=== PATIENT | female | born 1970 | race African-American/Black ===

== ENCOUNTER 2022-01-24 11:54 | Inpatient (IN) | payer OTHER, SELFPAY ==
[~2022-01-24 11:54] MED LIST: Iopamidol 300 61% 100 ML VIAL FS ONE
[2022-01-24 12:47] LABS: Bilirubin Neg (Negative); Blood, Urine 250 (Negative); Clarity Cloudy (Clear); Glucose, Urine (Dipstick) Normal (Negative); Ketone, Urine Negative (Negative); Leukocyte 500 (Negative); Nitrite Negative (Negative); Protein, Urine (Dipstick) 100 mg/dl (Neg-Trace); Specific Gravity, Urine 1.015 (1.005-1.030); Urobilinogen Normal mg/dL (Less than 2)
[2022-01-24 13:17] LABS: WBC/HPF Greater Than 50 HPF (0-3)
[2022-01-24 13:18] LABS: Bacteria/HPF 1+ HPF (None Seen)
[2022-01-24] MEDS ORDERED: Haloperidol Lactate 5 MG/ML VIAL ONE (14:51)
[2022-01-24] MEDS ORDERED: Ketorolac Tromethamine 30 MG/ML VIAL ONE (14:52)
[2022-01-24] MEDS ORDERED: Ondansetron PF 4 MG/2 ML Vial ONE (14:52)
[2022-01-24] MEDS ORDERED: diphenhydrAMINE 50 MG/ML VIAL ONE (14:52)
[2022-01-24 14:54] LABS: #Monocytes 0.8 10x3/uL (0.0-1.1); #Neutrophils 5.3 10x3/uL (1.5-8.4); %Basophils 0.1 % (0.0-2.0); %Eosinophils 0.1 % (0.0-6.0); %Lymphocytes 18.1 % (18.0-47.0); %Neutrophils 71.6 % (40.0-75.0); Mean Corpuscular HGB CONC 33.3 g/dL (32.0-36.0); Mean Corpuscular Hemoglobin 25.5 pg (27.0-33.0); Mean Corpuscular Volume 76.6 fl (81.6-98.3); Mean Platelet Volume 10.7 fl (7.4-10.4); Platelet Count 217 10x3/uL (150-450); RBC Distribution Width 15.7 % (11.5-14.5); White Blood Cell (WBC) Count 7.5 10x3/uL (3.5-10.5)
[2022-01-24 15:15] LABS: ALT (SGPT) 23 U/L (8-55); AST (SGOT) 22 U/L (5-34); Albumin 4.2 g/dL (3.5-5.0); Alkaline Phosphatase 80 U/L (40-110); Anion Gap 16 mmol/L (10-20); BUN (Urea Nitrogen) 18 mg/dL (9.8-20.1); Calc. Creatinine Clearance 0 mL/min (70-130); Calcium 9.2 mg/dL (7.8-10.44); Carbon Dioxide 26 mmol/L (22-29); Chloride 100 mmol/L (98-107); Estimated GFR 72; Globulin 3.4 g/dL (2.4-3.5); Glucose 92 mg/dL (70-105); Lipase 14 U/L (8-78); Magnesium 1.6 mg/dL (1.6-2.6); Protein, Total 7.6 g/dL (6.0-8.3); Sodium 139 mmol/L (136-145)
[2022-01-24 15:31] LABS: CKMB 1.3 ng/mL (0-6.6)
[2022-01-24] MEDS ORDERED: cefTRIAXone\\ROCEPHIN 2 GM VIAL ONE (15:48)
[2022-01-24] MEDS ORDERED: Senokot S 8.6-50 MG TAB PO PRN (17:14)
[2022-01-24] MEDS ORDERED: Ondansetron PF 4 MG/2 ML Vial IVP PRN (17:14)
[2022-01-24] MEDS ORDERED: Ondansetron ODT 4 MG TAB PO PRN (17:14)
[2022-01-24] MEDS ORDERED: Acetaminophen 500 MG TAB ONE (17:26)
[2022-01-24 18:12] LABS: Troponin I 0.041 ng/mL (< 0.028)
[2022-01-24] MEDS ORDERED: Potassium Chloride 20 MEQ TAB PO SCH (20:00)
[2022-01-24] MEDS ORDERED: Magnesium 2 GM/50 ML(in water) 2 GM in Premix Bag 1 BAG IVPB SCH (20:00)
[2022-01-24 20:08] VITALS: BMI 48.5
[2022-01-24] MEDS: Sodium Chloride 0.9% 1,000 ML IV SCH (20:38)
[2022-01-24] MEDS: Enoxaparin Sodium 40 MG/0.4 ML SYRINGE SC SCH (20:39)
[2022-01-24] MEDS: Famotidine 20 MG TAB PO SCH (20:52)
[2022-01-24 22:20] LABS: SARS-CoV-2 NAA Rapid Test Not Detected (NotDetected)
[2022-01-25] MEDS: Acetaminophen 325 MG TAB PO PRN ×2 (01:09→21:50)
[2022-01-25 06:40] LABS: Anion Gap 12 mmol/L (10-20); BUN (Urea Nitrogen) 11 mg/dL (9.8-20.1); Calc. Creatinine Clearance 203 mL/min (70-130); Calcium 8.5 mg/dL (7.8-10.44); Carbon Dioxide 27 mmol/L (22-29); Chloride 105 mmol/L (98-107); Estimated GFR 88; Glucose 97 mg/dL (70-105); Magnesium 1.8 mg/dL (1.6-2.6); Potassium 2.9 mmol/L (3.5-5.1); Sodium 141 mmol/L (136-145)
[2022-01-25 06:43] LABS: Mean Corpuscular HGB CONC 32.6 g/dL (32.0-36.0); Mean Corpuscular Hemoglobin 25.1 pg (27.0-33.0); Mean Corpuscular Volume 76.9 fl (81.6-98.3); Mean Platelet Volume 10.8 fl (7.4-10.4); Platelet Count 180 10x3/uL (150-450); RBC Distribution Width 15.9 % (11.5-14.5); Red Blood Cell (RBC) Count 4.38 10x6/uL (3.90-5.03); White Blood Cell (WBC) Count 5.9 10x3/uL (3.5-10.5)
[2022-01-25 07:24] LABS: MDiff Complete? YES
[2022-01-25 07:27] LABS: Eosinophils 1 % (0-10); Lymphocytes 24 % (21-51); Monocytes 10 % (0-10); Neutrophil 64 % (42-75); Platelet Morphology Comment Appears Adequate; RBC Morphology Normal; Reactive Lymphocytes 1 % (0-10)
[2022-01-25] MEDS ORDERED: FLU VACC QS2022-23(6MOS UP)/PF 60 MCG/0.5 ML SYRINGE IM ONE (09:00)
[2022-01-25] MEDS: Famotidine 20 MG TAB PO SCH ×2 (09:07→21:42)
[2022-01-25] MEDS: Potassium Chloride 20 MEQ TAB PO SCH ×2 (09:24→21:42)
[2022-01-25] MEDS: cefTRIAXone\\ROCEPHIN 2 GM in Sodium Chloride 0.9% 100 ML IVPB SCH (15:05)
[2022-01-25] MEDS: Sodium Chloride 0.9% 1,000 ML IV SCH (16:16)
[2022-01-25] MEDS: traMADol HCl 50 MG TAB PO PRN (17:14)
[2022-01-25] MEDS: Amlodipine 10 MG TAB PO SCH (21:42)
[2022-01-25] MEDS: Enoxaparin Sodium 40 MG/0.4 ML SYRINGE SC SCH (21:42)
[2022-01-26 04:24] LABS: Anion Gap 10 mmol/L (10-20); BUN (Urea Nitrogen) 10 mg/dL (9.8-20.1); Calc. Creatinine Clearance 232 mL/min (70-130); Calcium 8.7 mg/dL (7.8-10.44); Carbon Dioxide 29 mmol/L (22-29); Chloride 103 mmol/L (98-107); Estimated GFR 103; Glucose 99 mg/dL (70-105); Magnesium 1.6 mg/dL (1.6-2.6); Potassium 3.3 mmol/L (3.5-5.1); Sodium 139 mmol/L (136-145)
[2022-01-26 04:51] LABS: #Eosinphils 0.1 10x3/uL (0.0-0.5); #Monocytes 0.8 10x3/uL (0.0-1.1); %Basophils 0.5 % (0.0-2.0); %Eosinophils 2.2 % (0.0-6.0); %Lymphocytes 28.1 % (18.0-47.0); %Monocytes 19.1 % (0.0-10.0); %Neutrophils 49.9 % (40.0-75.0); Hemoglobin 11.5 g/dL (12.0-15.5); Mean Corpuscular HGB CONC 32.6 g/dL (32.0-36.0); Mean Corpuscular Hemoglobin 25.2 pg (27.0-33.0); Mean Corpuscular Volume 77.4 fl (81.6-98.3); Mean Platelet Volume 10.3 fl (7.4-10.4); Platelet Count 174 10x3/uL (150-450); RBC Distribution Width 15.8 % (11.5-14.5); Red Blood Cell (RBC) Count 4.56 10x6/uL (3.90-5.03); White Blood Cell (WBC) Count 4.1 10x3/uL (3.5-10.5)
[2022-01-26] MEDS: traMADol HCl 50 MG TAB PO PRN ×2 (05:23→20:41)
[2022-01-26 05:57] LABS: Band 1 % (5-11); Eosinophils 4 % (0-10); Lymphocytes 23 % (21-51); Monocytes 12 % (0-10); Neutrophil 54 % (42-75); Reactive Lymphocytes 6 % (0-10)
[2022-01-26 05:59] LABS: Microcytosis SLIGHT = 6-15 cells (100X) (0-5/hpf)
[2022-01-26 06:00] LABS: Hypochromia SLIGHT = 6-15 cells (100X) (0-5/hpf)
[2022-01-26] MEDS ORDERED: Potassium Chloride 20 MEQ TAB PO SCH (08:30)
[2022-01-26] MEDS ORDERED: Loperamide HCl 2 MG CAP PO PRN (08:31)
[2022-01-26] MEDS: Famotidine 20 MG TAB PO SCH ×2 (09:35→20:43)
[2022-01-26] MEDS: cefTRIAXone\\ROCEPHIN 2 GM in Sodium Chloride 0.9% 100 ML IVPB SCH (17:15)
[2022-01-26] MEDS: Acetaminophen 325 MG TAB PO PRN (17:51)
[2022-01-26] MEDS ORDERED: hydrALAZINE 20 MG/ML VIAL SLOW IVP PRN (18:26)
[2022-01-26] MEDS: Amlodipine 10 MG TAB PO SCH (20:42)
[2022-01-26] MEDS: Enoxaparin Sodium 40 MG/0.4 ML SYRINGE SC SCH (20:43)
[2022-01-27 04:30] LABS: #Eosinphils 0.1 10x3/uL (0.0-0.5); #Monocytes 0.7 10x3/uL (0.0-1.1); #Neutrophils 1.3 10x3/uL (1.5-8.4); %Basophils 0.6 % (0.0-2.0); %Eosinophils 3.6 % (0.0-6.0); %Lymphocytes 41.4 % (18.0-47.0); %Monocytes 19.3 % (0.0-10.0); %Neutrophils 34.8 % (40.0-75.0); Hemoglobin 11.9 g/dL (12.0-15.5); Mean Corpuscular Hemoglobin 25.1 pg (27.0-33.0); Platelet Count 198 10x3/uL (150-450); RBC Distribution Width 15.4 % (11.5-14.5); Red Blood Cell (RBC) Count 4.75 10x6/uL (3.90-5.03); White Blood Cell (WBC) Count 3.6 10x3/uL (3.5-10.5)
[2022-01-27 04:41] LABS: Anion Gap 12 mmol/L (10-20); BUN (Urea Nitrogen) 9 mg/dL (9.8-20.1); Calc. Creatinine Clearance 250 mL/min (70-130); Calcium 9.1 mg/dL (7.8-10.44); Carbon Dioxide 28 mmol/L (22-29); Chloride 102 mmol/L (98-107); Estimated GFR 105; Glucose 115 mg/dL (70-105); Magnesium 1.5 mg/dL (1.6-2.6); Potassium 3.3 mmol/L (3.5-5.1); Sodium 139 mmol/L (136-145)
[2022-01-27 06:32] LABS: Band 1 % (5-11); Eosinophils 4 % (0-10); Lymphocytes 32 % (21-51); Monocytes 26 % (0-10)
[2022-01-27 06:33] LABS: Neutrophil 37 % (42-75)
[2022-01-27 06:34] LABS: Ovalocytes SLIGHT = 2-5 cells (100X) (0-1/hpf)
[2022-01-27 06:35] LABS: Giant Platelets SLIGHT
[2022-01-27] MEDS ORDERED: Magnesium 2 GM/50 ML(in water) 2 GM in Premix Bag 1 BAG IVPB SCH (08:30)
[2022-01-27] MEDS ORDERED: Potassium Chloride 20 MEQ TAB PO SCH (09:00)
[2022-01-27] MEDS: Famotidine 20 MG TAB PO SCH (10:07)
[2022-01-27] MEDS ORDERED: cefTRIAXone\\ROCEPHIN 2 GM in Sodium Chloride 0.9% 100 ML IVPB SCH (12:00)
[2022-01-27 12:41] VITALS: BP 140/99; TEMP 97.9
== END 2022-01-27 14:07 | disposition home or self-care (01) | DRG 871 ==
LOC: CSHERS 11:54 → CSHTELE 18:42 → OBSVTOIN 01-25 09:43
PROVIDERS: ADMIT Family Medicine; ATTEND Internal Medicine
DX: A41.9 Sepsis, unspecified organism (principal); I21.A1 Myocardial infarction type 2; N30.00 Acute cystitis without hematuria; Z20.822 Contact with and (suspected) exposure to COVID-19; B96.20 Unspecified Escherichia coli [E. coli] as the cause of diseases classified elsewhere; E87.6 Hypokalemia; I10 Essential (primary) hypertension; E87.5 Hyperkalemia; J45.909 Unspecified asthma, uncomplicated; R19.7 Diarrhea, unspecified; Z88.5 Allergy status to narcotic agent; Z79.899 Other long term (current) drug therapy; Z98.51 Tubal ligation status
CPT/HCPCS: 36415; 74177; 80048; 80053; 81003; 81015; 82553; 83605; 83690; 83735; 84484; 85025; 87040; 87077; 87086; 87149; 87186; 93005; 94760; 96365; 96372; 96375; G0378; J0360; J0696; J1200; J1630; J1650; J1885; J2405; J3475; J3490; J7050; Q9967

== ENCOUNTER 2022-02-27 23:48 | Inpatient (IN) | payer OTHER, SELFPAY ==
[2022-02-28 00:57] LABS: #Eosinphils 0.1 10x3/uL (0.0-0.5); #Monocytes 0.6 10x3/uL (0.0-1.1); #Neutrophils 2.9 10x3/uL (1.5-8.4); %Basophils 0.6 % (0.0-2.0); %Eosinophils 1.8 % (0.0-6.0); %Monocytes 11.8 % (0.0-10.0); %Neutrophils 58.6 % (40.0-75.0); Mean Corpuscular HGB CONC 32.6 g/dL (32.0-36.0); Mean Corpuscular Hemoglobin 25.3 pg (27.0-33.0); Mean Corpuscular Volume 77.6 fl (81.6-98.3); Mean Platelet Volume 10.1 fl (7.4-10.4); Platelet Count 203 10x3/uL (150-450); RBC Distribution Width 16.9 % (11.5-14.5); Red Blood Cell (RBC) Count 4.74 10x6/uL (3.90-5.03); White Blood Cell (WBC) Count 4.9 10x3/uL (3.5-10.5)
[2022-02-28 01:11] LABS: ALT (SGPT) 21 U/L (8-55); AST (SGOT) 18 U/L (5-34); Albumin 3.8 g/dL (3.5-5.0); Alkaline Phosphatase 69 U/L (40-110); Anion Gap 13 mmol/L (10-20); BUN (Urea Nitrogen) 15 mg/dL (9.8-20.1); Bilirubin, Total 0.4 mg/dL (0.2-1.2); Calc. Creatinine Clearance 0 mL/min (70-130); Carbon Dioxide 28 mmol/L (22-29); Chloride 103 mmol/L (98-107); Estimated GFR 70; Globulin 3.1 g/dL (2.4-3.5); Glucose 116 mg/dL (70-105); Protein, Total 6.9 g/dL (6.0-8.3); Sodium 141 mmol/L (136-145)
[2022-02-28 01:31] LABS: CKMB 1.9 ng/mL (0-6.6)
[2022-02-28] MEDS ORDERED: Aspirin Chewable 81 MG TAB ONE ×2 (02:27→09:38)
[2022-02-28] MEDS ORDERED: Nitroglycerin 2% Ointment 1 INCH/1 GM Packet ONE (02:27)
[2022-02-28] MEDS ORDERED: Potassium Chloride 20 MEQ TAB ONE ×2 (02:27→06:31)
[2022-02-28 04:30] LABS: SARS-CoV-2 NAA Rapid Test Not Detected (NotDetected)
[2022-02-28 04:55] LABS: Troponin I 0.055 ng/mL (< 0.028)
[2022-02-28] MEDS ORDERED: Potassium Chloride 20 MEQ TAB PO SCH ×2 (06:30→18:00)
[2022-02-28 07:12] LABS: Troponin I 0.047 ng/mL (< 0.028)
[2022-02-28 07:28] LABS: Magnesium 1.6 mg/dL (1.6-2.6)
[2022-02-28 07:54] LABS: Uric Acid 6.1 mg/dL (2.6-6.0)
[2022-02-28] MEDS ORDERED: Carvedilol 3.125 MG TAB PO SCH (09:00)
[2022-02-28] MEDS ORDERED: Nitroglycerin 2% Ointment 1 INCH/1 GM Packet TOP SCH (09:00)
[2022-02-28] MEDS ORDERED: Carvedilol 3.125 MG TAB ONE (09:36)
[2022-02-28] MEDS ORDERED: Enoxaparin Sodium 40 MG/0.4 ML SYRINGE ONE (09:38)
[2022-02-28] MEDS ORDERED: hydrALAZINE 25 MG TAB ONE ×2 (09:38→12:08)
[2022-02-28] MEDS: Enoxaparin Sodium 40 MG/0.4 ML SYRINGE SC SCH (09:47)
[2022-02-28] MEDS: Aspirin Chewable 81 MG TAB PO SCH (09:47)
[2022-02-28] MEDS: hydrALAZINE 25 MG TAB PO SCH ×3 (09:47→23:42)
[2022-02-28] MEDS: FLUoxetine HCl 10 MG CAP PO SCH (09:47)
[2022-02-28 11:15] LABS: Anion Gap 10 mmol/L (10-20); BUN (Urea Nitrogen) 14 mg/dL (9.8-20.1); Calc. Creatinine Clearance 0 mL/min (70-130); Calcium 8.8 mg/dL (7.8-10.44); Carbon Dioxide 27 mmol/L (22-29); Chloride 104 mmol/L (98-107); Estimated GFR 97; Glucose 139 mg/dL (70-105); Potassium 3.4 mmol/L (3.5-5.1); Sodium 138 mmol/L (136-145)
[2022-02-28] MEDS: Enalaprilat Dihydrate 1.25 MG/ML VIAL SLOW IVP SCH ×2 (11:59→17:12)
[2022-02-28 15:43] VITALS: BMI 44.1
[2022-02-28] MEDS ORDERED: Furosemide 20 MG/2 ML VIAL SLOW IVP SCH (18:00)
[2022-02-28] MEDS ORDERED: Magnesium 2 GM/50 ML(in water) 2 GM in Premix Bag 1 BAG IVPB SCH (20:00)
[2022-02-28] MEDS ORDERED: Losartan 25 MG TAB PO SCH (21:00)
[2022-02-28] MEDS: Valsartan 80 MG TAB PO SCH (23:42)
[2022-03-01 07:13] LABS: #Eosinphils 0.1 10x3/uL (0.0-0.5); #Monocytes 0.5 10x3/uL (0.0-1.1); #Neutrophils 2.9 10x3/uL (1.5-8.4); %Basophils 0.4 % (0.0-2.0); %Eosinophils 1.5 % (0.0-6.0); %Lymphocytes 27.2 % (18.0-47.0); %Monocytes 10.7 % (0.0-10.0); Hemoglobin 11.4 g/dL (12.0-15.5); Mean Corpuscular HGB CONC 32.7 g/dL (32.0-36.0); Mean Corpuscular Hemoglobin 25.3 pg (27.0-33.0); Mean Corpuscular Volume 77.6 fl (81.6-98.3); Mean Platelet Volume 10.1 fl (7.4-10.4); Platelet Count 200 10x3/uL (150-450); White Blood Cell (WBC) Count 4.8 10x3/uL (3.5-10.5)
[2022-03-01 07:33] LABS: Anion Gap 13 mmol/L (10-20); BUN (Urea Nitrogen) 11 mg/dL (9.8-20.1); Calc. Creatinine Clearance 208 mL/min (70-130); Calcium 8.6 mg/dL (7.8-10.44); Carbon Dioxide 25 mmol/L (22-29); Chloride 106 mmol/L (98-107); Estimated GFR 102; Glucose 105 mg/dL (70-105); Potassium 3.5 mmol/L (3.5-5.1); Sodium 140 mmol/L (136-145)
[2022-03-01] MEDS ORDERED: Carvedilol 6.25 MG TAB PO SCH (08:00)
[2022-03-01] MEDS: Aspirin Chewable 81 MG TAB PO SCH (08:47)
[2022-03-01] MEDS: FLUoxetine HCl 10 MG CAP PO SCH (08:47)
[2022-03-01] MEDS: hydrALAZINE 25 MG TAB PO SCH ×3 (08:48→22:23)
[2022-03-01] MEDS: Valsartan 80 MG TAB PO SCH ×2 (08:48→22:23)
[2022-03-01] MEDS: Enoxaparin Sodium 40 MG/0.4 ML SYRINGE SC SCH (08:48)
[2022-03-01] MEDS: Furosemide 40 MG/4 ML VIAL SLOW IVP SCH (08:53)
[2022-03-01] MEDS: Carvedilol 12.5 MG TAB PO SCH (17:07)
[2022-03-02 05:09] LABS: Anion Gap 11 mmol/L (10-20); BUN (Urea Nitrogen) 14 mg/dL (9.8-20.1); Calc. Creatinine Clearance 211 mL/min (70-130); Calcium 8.7 mg/dL (7.8-10.44); Carbon Dioxide 27 mmol/L (22-29); Chloride 103 mmol/L (98-107); Estimated GFR 103; Glucose 100 mg/dL (70-105); Potassium 3.1 mmol/L (3.5-5.1); Sodium 138 mmol/L (136-145)
[2022-03-02] MEDS ORDERED: GUAIFENESIN SF SOLN 200 MG/10 ML UDCUP PO PRN (05:58)
[2022-03-02] MEDS: Enoxaparin Sodium 40 MG/0.4 ML SYRINGE SC SCH (08:51)
[2022-03-02] MEDS: Aspirin Chewable 81 MG TAB PO SCH (08:51)
[2022-03-02] MEDS: FLUoxetine HCl 10 MG CAP PO SCH (08:52)
[2022-03-02] MEDS: Potassium Chloride 20 MEQ TAB PO SCH ×2 (08:52→13:10)
[2022-03-02] MEDS: Carvedilol 12.5 MG TAB PO SCH (08:52)
[2022-03-02] MEDS: Furosemide 40 MG/4 ML VIAL SLOW IVP SCH (08:52)
[2022-03-02] MEDS: hydrALAZINE 25 MG TAB PO SCH (08:52)
[2022-03-02] MEDS: Valsartan 80 MG TAB PO SCH (08:54)
[2022-03-02 12:26] VITALS: BP 146/83; TEMP 97.7
== END 2022-03-02 13:45 | disposition home or self-care (01) | DRG 291 ==
LOC: CSHERS 23:48 → CSHERHOLD 02-28 03:37 → CSHTELE 02-28 13:41
PROVIDERS: ADMIT Family Medicine; ATTEND Family Medicine
DX: I11.0 Hypertensive heart disease with heart failure (principal); I50.43 Acute on chronic combined systolic (congestive) and diastolic (congestive) heart failure; Z68.43 Body mass index [BMI] 50.0-59.9, adult; J45.20 Mild intermittent asthma, uncomplicated; E87.6 Hypokalemia; E66.01 Morbid (severe) obesity due to excess calories; R77.8 Other specified abnormalities of plasma proteins; Z20.822 Contact with and (suspected) exposure to COVID-19; F41.0 Panic disorder [episodic paroxysmal anxiety]; G47.33 Obstructive sleep apnea (adult) (pediatric); Z98.51 Tubal ligation status; Z79.899 Other long term (current) drug therapy; Z82.49 Family history of ischemic heart disease and other diseases of the circulatory system; Z83.3 Family history of diabetes mellitus; Z82.3 Family history of stroke; Z88.5 Allergy status to narcotic agent; Z79.82 Long term (current) use of aspirin
CPT/HCPCS: 36415; 71045; 80048; 80053; 82553; 83605; 83735; 83880; 84443; 84484; 84550; 85025; 87040; 93005; 93306; 94640; 94760; 97139; J1650; J1940; J3475; J7620; U0002

== ENCOUNTER 2022-04-20 04:23 | Inpatient (IN) | payer OTHER ==
[2022-04-20] MEDS ORDERED: Aspirin Chewable 81 MG TAB ONE (05:27)
[2022-04-20] MEDS ORDERED: Furosemide 40 MG/4 ML VIAL ONE (05:27)
[2022-04-20] MEDS ORDERED: Nitroglycerin 2% Ointment 1 INCH/1 GM Packet ONE (05:27)
[2022-04-20 06:03] LABS: Hemoglobin 11.1 g/dL (12.0-15.5); MDiff Complete? YES; Mean Corpuscular HGB CONC 32.5 g/dL (32.0-36.0); Mean Corpuscular Hemoglobin 25.3 pg (27.0-33.0); Mean Corpuscular Volume 77.9 fl (81.6-98.3); Mean Platelet Volume 10.4 fl (7.4-10.4); Platelet Count 186 10x3/uL (150-450); RBC Distribution Width 16.2 % (11.5-14.5); Red Blood Cell (RBC) Count 4.39 10x6/uL (3.90-5.03); White Blood Cell (WBC) Count 3.7 10x3/uL (3.5-10.5)
[2022-04-20 06:19] LABS: ALT (SGPT) 43 U/L (8-55); AST (SGOT) 35 U/L (5-34); Albumin 3.4 g/dL (3.5-5.0); Alkaline Phosphatase 62 U/L (40-110); Anion Gap 12 mmol/L (10-20); BUN (Urea Nitrogen) 18 mg/dL (9.8-20.1); Bilirubin, Total 0.4 mg/dL (0.2-1.2); CK (CPK) 127 U/L (29-168); Calc. Creatinine Clearance 0 mL/min (70-130); Calcium 8.8 mg/dL (7.8-10.44); Carbon Dioxide 25 mmol/L (22-29); Chloride 107 mmol/L (98-107); Estimated GFR 81; Globulin 2.5 g/dL (2.4-3.5); Glucose 114 mg/dL (70-105); Lipase 24 U/L (8-78); Potassium 3.7 mmol/L (3.5-5.1); Protein, Total 5.9 g/dL (6.0-8.3); Sodium 140 mmol/L (136-145)
[2022-04-20 06:27] LABS: Anisocytosis SLIGHT = 6-15 cells (100X) (0-5/hpf); Hypochromia SLIGHT = 6-15 cells (100X) (0-5/hpf); Lymphocytes 28 % (21-51); Microcytosis SLIGHT = 6-15 cells (100X) (0-5/hpf); Monocytes 12 % (0-10); Neutrophil 60 % (42-75)
[2022-04-20 06:28] LABS: Platelet Morphology Comment Appears Adequate
[2022-04-20 06:57] LABS: Bilirubin Neg (Negative); Blood, Urine Negative (Negative); Clarity Clear (Clear); Glucose, Urine (Dipstick) Normal (Negative); Ketone, Urine Negative (Negative); Leukocyte 500 (Negative); Nitrite Negative (Negative); Protein, Urine (Dipstick) Negative (Neg-Trace); Specific Gravity, Urine 1.005 (1.005-1.030); Urobilinogen Normal mg/dL (Less than 2)
[2022-04-20 07:00] LABS: Bacteria/HPF Rare-Few HPF (None Seen); RBC/HPF 0-3 HPF (0-3); Squamous Epithelial 0-3 HPF (0-3)
[2022-04-20] MEDS ORDERED: Ondansetron PF 4 MG/2 ML Vial IVP PRN (10:29)
[2022-04-20] MEDS ORDERED: Acetaminophen 325 MG TAB PO PRN (10:29)
[2022-04-20] MEDS ORDERED: Acetaminophen 650 MG Suppository PR PRN (10:29)
[2022-04-20] MEDS ORDERED: Ondansetron ODT 4 MG TAB PO PRN (10:29)
[2022-04-20] MEDS ORDERED: Ventolin HFA Inhaler 60 PUFF INHALER INH PRN (10:52)
[2022-04-20] MEDS ORDERED: hydrALAZINE 25 MG TAB PO SCH (15:00)
[2022-04-20] MEDS: Furosemide 40 MG/4 ML VIAL SLOW IVP SCH (15:00)
[2022-04-20] MEDS: Carvedilol 12.5 MG TAB PO SCH (17:53)
[2022-04-21 03:55] LABS: Hemoglobin 10.7 g/dL (12.0-15.5); Mean Corpuscular HGB CONC 32.9 g/dL (32.0-36.0); Mean Corpuscular Hemoglobin 25.4 pg (27.0-33.0); Mean Corpuscular Volume 77.2 fl (81.6-98.3); Mean Platelet Volume 10.3 fl (7.4-10.4); Platelet Count 168 10x3/uL (150-450); RBC Distribution Width 15.9 % (11.5-14.5); Red Blood Cell (RBC) Count 4.21 10x6/uL (3.90-5.03); White Blood Cell (WBC) Count 3.8 10x3/uL (3.5-10.5)
[2022-04-21 03:56] LABS: MDiff Complete? YES
[2022-04-21 04:09] LABS: Anion Gap 11 mmol/L (10-20); BUN (Urea Nitrogen) 14 mg/dL (9.8-20.1); Calc. Creatinine Clearance 198 mL/min (70-130); Calcium 8.4 mg/dL (7.8-10.44); Carbon Dioxide 28 mmol/L (22-29); Chloride 105 mmol/L (98-107); Estimated GFR 92; Glucose 98 mg/dL (70-105); Potassium 3.2 mmol/L (3.5-5.1); Sodium 141 mmol/L (136-145)
[2022-04-21 04:46] LABS: Lymphocytes 27 % (21-51); Monocytes 6 % (0-10); Neutrophil 63 % (42-75); Reactive Lymphocytes 4 % (0-10)
[2022-04-21 04:47] LABS: Anisocytosis SLIGHT = 6-15 cells (100X) (0-5/hpf); Hypochromia SLIGHT = 6-15 cells (100X) (0-5/hpf); Microcytosis SLIGHT = 6-15 cells (100X) (0-5/hpf); Platelet Morphology Comment Appears Adequate
[2022-04-21] MEDS: Furosemide 40 MG/4 ML VIAL SLOW IVP SCH ×2 (05:47→13:30)
[2022-04-21] MEDS: Carvedilol 12.5 MG TAB PO SCH ×2 (09:20→17:20)
[2022-04-21] MEDS: Valsartan 80 MG TAB PO SCH (09:21)
[2022-04-21] MEDS ORDERED: Potassium Chloride 20 MEQ TAB PO SCH (12:00)
[2022-04-22 04:35] LABS: Mean Corpuscular Hemoglobin 25.5 pg (27.0-33.0); Mean Corpuscular Volume 77.1 fl (81.6-98.3); Mean Platelet Volume 10.2 fl (7.4-10.4); Platelet Count 179 10x3/uL (150-450); RBC Distribution Width 15.9 % (11.5-14.5); Red Blood Cell (RBC) Count 4.32 10x6/uL (3.90-5.03); White Blood Cell (WBC) Count 3.6 10x3/uL (3.5-10.5)
[2022-04-22 04:45] LABS: MDiff Complete? YES
[2022-04-22 04:49] LABS: Anion Gap 11 mmol/L (10-20); BUN (Urea Nitrogen) 13 mg/dL (9.8-20.1); Calc. Creatinine Clearance 194 mL/min (70-130); Calcium 8.4 mg/dL (7.8-10.44); Carbon Dioxide 29 mmol/L (22-29); Chloride 104 mmol/L (98-107); Estimated GFR 91; Glucose 91 mg/dL (70-105); Potassium 3.1 mmol/L (3.5-5.1); Sodium 141 mmol/L (136-145)
[2022-04-22 05:49] LABS: Eosinophils 5 % (0-10); Lymphocytes 34 % (21-51); Monocytes 20 % (0-10); Neutrophil 37 % (42-75); Reactive Lymphocytes 4 % (0-10)
[2022-04-22 05:50] LABS: Anisocytosis SLIGHT = 6-15 cells (100X) (0-5/hpf)
[2022-04-22 05:51] LABS: Hypochromia SLIGHT = 6-15 cells (100X) (0-5/hpf); Macrocytosis SLIGHT = 6-15 cells (100X) (0-5/hpf); Microcytosis SLIGHT = 6-15 cells (100X) (0-5/hpf)
[2022-04-22 05:52] LABS: Platelet Morphology Comment Appears Adequate
[2022-04-22] MEDS: Furosemide 40 MG/4 ML VIAL SLOW IVP SCH ×2 (06:04→15:17)
[2022-04-22] MEDS: FLUoxetine HCl 10 MG CAP PO SCH (09:27)
[2022-04-22] MEDS: Carvedilol 12.5 MG TAB PO SCH ×2 (09:27→17:57)
[2022-04-22] MEDS: Aspirin Chewable 81 MG TAB PO SCH (09:27)
[2022-04-22] MEDS: Potassium Chloride 20 MEQ TAB PO SCH (09:27)
[2022-04-22] MEDS: Valsartan 80 MG TAB PO SCH ×2 (09:27→21:15)
[2022-04-22] MEDS ORDERED: Iopamidol 300 61% 100 ML VIAL FS ONE (11:11)
[2022-04-23 05:30] LABS: Anion Gap 11 mmol/L (10-20); BUN (Urea Nitrogen) 10 mg/dL (9.8-20.1); Calc. Creatinine Clearance 196 mL/min (70-130); Calcium 8.8 mg/dL (7.8-10.44); Carbon Dioxide 29 mmol/L (22-29); Chloride 102 mmol/L (98-107); Estimated GFR 95; Glucose 95 mg/dL (70-105); Potassium 3.1 mmol/L (3.5-5.1); Sodium 139 mmol/L (136-145)
[2022-04-23 05:34] LABS: Hemoglobin 11.8 g/dL (12.0-15.5); Mean Corpuscular HGB CONC 32.2 g/dL (32.0-36.0); Mean Corpuscular Hemoglobin 24.7 pg (27.0-33.0); Mean Corpuscular Volume 76.7 fl (81.6-98.3); Platelet Count 185 10x3/uL (150-450); RBC Distribution Width 15.9 % (11.5-14.5); Red Blood Cell (RBC) Count 4.77 10x6/uL (3.90-5.03); White Blood Cell (WBC) Count 3.6 10x3/uL (3.5-10.5)
[2022-04-23 05:35] LABS: MDiff Complete? YES
[2022-04-23] MEDS: Furosemide 40 MG/4 ML VIAL SLOW IVP SCH ×2 (06:02→14:22)
[2022-04-23 06:05] LABS: Eosinophils 2 % (0-10); Lymphocytes 25 % (21-51); Monocytes 24 % (0-10); Neutrophil 48 % (42-75); Reactive Lymphocytes 1 % (0-10)
[2022-04-23 06:14] LABS: Microcytosis SLIGHT = 6-15 cells (100X) (0-5/hpf)
[2022-04-23 06:15] LABS: Ovalocytes SLIGHT = 2-5 cells (100X) (0-1/hpf)
[2022-04-23 06:16] LABS: Anisocytosis SLIGHT = 6-15 cells (100X) (0-5/hpf); Hypochromia SLIGHT = 6-15 cells (100X) (0-5/hpf)
[2022-04-23 06:17] LABS: Platelet Morphology Comment Appears Decreased; Schistocytes SLIGHT = 2-5 cells (100X) (0-1/hpf)
[2022-04-23] MEDS ORDERED: Electrolyte Replacement Protocol 1 EACH FS PRN (07:56)
[2022-04-23] MEDS ORDERED: Potassium Chloride 20 MEQ TAB PO SCH (08:15)
[2022-04-23] MEDS ORDERED: Magnesium 2 GM/50 ML(in water) 2 GM in Premix Bag 1 BAG IVPB SCH (08:30)
[2022-04-23] MEDS: Aspirin Chewable 81 MG TAB PO SCH (09:09)
[2022-04-23] MEDS: FLUoxetine HCl 10 MG CAP PO SCH (09:09)
[2022-04-23] MEDS: Valsartan 80 MG TAB PO SCH ×2 (09:09→20:58)
[2022-04-23] MEDS: Potassium Chloride 20 MEQ TAB PO SCH (09:09)
[2022-04-23] MEDS: Carvedilol 12.5 MG TAB PO SCH ×2 (09:09→16:41)
[2022-04-24 05:31] VITALS: BMI 42.5
[2022-04-24 06:07] LABS: Hemoglobin 11.7 g/dL (12.0-15.5); Mean Corpuscular HGB CONC 32.3 g/dL (32.0-36.0); Mean Corpuscular Hemoglobin 24.9 pg (27.0-33.0); Mean Corpuscular Volume 77.2 fl (81.6-98.3); Mean Platelet Volume 10.5 fl (7.4-10.4); Platelet Count 188 10x3/uL (150-450); RBC Distribution Width 15.9 % (11.5-14.5); Red Blood Cell (RBC) Count 4.69 10x6/uL (3.90-5.03); White Blood Cell (WBC) Count 3.3 10x3/uL (3.5-10.5)
[2022-04-24 06:27] LABS: Anion Gap 11 mmol/L (10-20); BUN (Urea Nitrogen) 11 mg/dL (9.8-20.1); Calc. Creatinine Clearance 184 mL/min (70-130); Calcium 8.7 mg/dL (7.8-10.44); Carbon Dioxide 31 mmol/L (22-29); Chloride 102 mmol/L (98-107); Estimated GFR 92; Glucose 86 mg/dL (70-105); Magnesium 1.7 mg/dL (1.6-2.6); Potassium 3.3 mmol/L (3.5-5.1); Sodium 141 mmol/L (136-145)
[2022-04-24 06:30] LABS: Phosphorus 3.4 mg/dL (2.3-4.7)
[2022-04-24 06:38] LABS: MDiff Complete? YES
[2022-04-24 06:44] LABS: Band 2 % (5-11); Eosinophils 5 % (0-10); Lymphocytes 39 % (21-51); Monocytes 21 % (0-10); Neutrophil 29 % (42-75); Reactive Lymphocytes 4 % (0-10)
[2022-04-24 06:45] LABS: Platelet Morphology Comment Appears Adequate; RBC Morphology Normal
[2022-04-24] MEDS ORDERED: Furosemide 40 MG TAB PO SCH (07:30)
[2022-04-24] MEDS ORDERED: Potassium Chloride 20 MEQ TAB PO SCH (08:00)
[2022-04-24] MEDS: FLUoxetine HCl 10 MG CAP PO SCH (08:44)
[2022-04-24] MEDS: Aspirin Chewable 81 MG TAB PO SCH (08:44)
[2022-04-24] MEDS: Carvedilol 12.5 MG TAB PO SCH (08:44)
[2022-04-24] MEDS ORDERED: Magnesium 2 GM/50 ML(in water) 2 GM in Premix Bag 1 BAG IVPB SCH (09:00)
[2022-04-24] MEDS: Valsartan 80 MG TAB PO SCH (11:03)
[2022-04-24 12:41] VITALS: BP 177/93; TEMP 97.8
== END 2022-04-24 14:20 | disposition home or self-care (01) | DRG 291 ==
LOC: CSHERS 04:23 → CSHTELE 10:12
PROVIDERS: ADMIT Internal Medicine; ATTEND Hospitalist
DX: I11.0 Hypertensive heart disease with heart failure (principal); I50.23 Acute on chronic systolic (congestive) heart failure; Z68.41 Body mass index [BMI] 40.0-44.9, adult; J45.20 Mild intermittent asthma, uncomplicated; E66.01 Morbid (severe) obesity due to excess calories; I42.0 Dilated cardiomyopathy; Z98.51 Tubal ligation status; Z88.8 Allergy status to other drugs, medicaments and biological substances; Z79.899 Other long term (current) drug therapy; Z79.82 Long term (current) use of aspirin
CPT/HCPCS: 36415; 71045; 74177; 80048; 80053; 81003; 81015; 82550; 83690; 83735; 83880; 84100; 84145; 84484; 85025; 93005; 94760; 96374; J1650; J1940; J3475; Q9967

== ENCOUNTER 2022-06-07 20:37 | Emergency (ER) | payer OTHER ==
[2022-06-07] MEDS ORDERED: Furosemide 40 MG/4 ML VIAL ONE (21:53)
[2022-06-07] MEDS ORDERED: hydrALAZINE 20 MG/ML VIAL ONE (21:53)
== END 2022-06-07 23:45 | disposition home or self-care (01) ==
LOC: CSHERS 20:37
DX: R06.00 Dyspnea, unspecified (principal); R60.9 Edema, unspecified; I11.0 Hypertensive heart disease with heart failure; I50.9 Heart failure, unspecified
CPT/HCPCS: 96374; 96375; J0360; J1940

== ENCOUNTER 2022-07-01 00:03 | Inpatient (IN) | payer OTHER ==
[2022-07-01] MEDS ORDERED: Furosemide 40 MG/4 ML VIAL ONE ×2 (00:43→05:40)
[2022-07-01] MEDS ORDERED: Aspirin Chewable 81 MG TAB ONE ×2 (00:43→09:19)
[2022-07-01] MEDS ORDERED: Nitroglycerin 2% Ointment 1 INCH/1 GM Packet ONE (00:44)
[2022-07-01 01:12] LABS: #Eosinphils 0.1 10x3/uL (0.0-0.5); #Monocytes 0.5 10x3/uL (0.0-1.1); #Neutrophils 2.2 10x3/uL (1.5-8.4); %Basophils 0.5 % (0.0-2.0); %Eosinophils 3.2 % (0.0-6.0); %Monocytes 11.8 % (0.0-10.0); %Neutrophils 54.3 % (40.0-75.0); Hemoglobin 12.2 g/dL (12.0-15.5); Mean Corpuscular HGB CONC 31.8 g/dL (32.0-36.0); Mean Corpuscular Hemoglobin 24.8 pg (27.0-33.0); Mean Platelet Volume 11.1 fl (7.4-10.4); Platelet Count 198 10x3/uL (150-450); RBC Distribution Width 17.4 % (11.5-14.5); Red Blood Cell (RBC) Count 4.92 10x6/uL (3.90-5.03); White Blood Cell (WBC) Count 4.1 10x3/uL (3.5-10.5)
[2022-07-01 01:26] LABS: ALT (SGPT) 30 U/L (8-55); AST (SGOT) 39 U/L (5-34); Albumin 3.8 g/dL (3.5-5.0); Alkaline Phosphatase 63 U/L (40-110); Anion Gap 13 mmol/L (10-20); BUN (Urea Nitrogen) 19 mg/dL (9.8-20.1); Bilirubin, Total 0.6 mg/dL (0.2-1.2); Calc. Creatinine Clearance 0 mL/min (70-130); Calcium 8.9 mg/dL (7.8-10.44); Carbon Dioxide 28 mmol/L (22-29); Chloride 105 mmol/L (98-107); Estimated GFR 59; Globulin 2.7 g/dL (2.4-3.5); Glucose 114 mg/dL (70-105); Lipase 46 U/L (8-78); Potassium 3.7 mmol/L (3.5-5.1); Protein, Total 6.5 g/dL (6.0-8.3); Sodium 142 mmol/L (136-145)
[2022-07-01] MEDS ORDERED: Nitroglycerin 0.4 MG TAB 1 EACH ONE (01:37)
[2022-07-01] MEDS ORDERED: hydrALAZINE 20 MG/ML VIAL ONE (02:06)
[2022-07-01] MEDS ORDERED: Ondansetron PF 4 MG/2 ML Vial IVP PRN ×2 (02:27→08:32)
[2022-07-01 03:43] LABS: #Eosinphils 0.1 10x3/uL (0.0-0.5); #Monocytes 0.6 10x3/uL (0.0-1.1); #Neutrophils 2.7 10x3/uL (1.5-8.4); %Basophils 0.4 % (0.0-2.0); %Eosinophils 1.7 % (0.0-6.0); %Lymphocytes 28.6 % (18.0-47.0); %Monocytes 13.3 % (0.0-10.0); %Neutrophils 55.8 % (40.0-75.0); Hemoglobin 12.8 g/dL (12.0-15.5); Mean Corpuscular HGB CONC 32.2 g/dL (32.0-36.0); Mean Corpuscular Volume 77.5 fl (81.6-98.3); Mean Platelet Volume 10.6 fl (7.4-10.4); Platelet Count 190 10x3/uL (150-450); RBC Distribution Width 17.2 % (11.5-14.5); Red Blood Cell (RBC) Count 5.12 10x6/uL (3.90-5.03); White Blood Cell (WBC) Count 4.8 10x3/uL (3.5-10.5)
[2022-07-01 03:57] LABS: Anion Gap 14 mmol/L (10-20); BUN (Urea Nitrogen) 19 mg/dL (9.8-20.1); Calc. Creatinine Clearance 0 mL/min (70-130); Calcium 9.2 mg/dL (7.8-10.44); Carbon Dioxide 31 mmol/L (22-29); Chloride 102 mmol/L (98-107); Estimated GFR 67; Glucose 97 mg/dL (70-105); Magnesium 1.6 mg/dL (1.6-2.6); Potassium 3.3 mmol/L (3.5-5.1); Sodium 144 mmol/L (136-145)
[2022-07-01 03:58] LABS: ALT (SGPT) 31 U/L (8-55); AST (SGOT) 37 U/L (5-34); Alkaline Phosphatase 64 U/L (40-110); Bilirubin, Direct 0.3 mg/dL (0.1-0.3); Bilirubin, Total 0.7 mg/dL (0.2-1.2); Protein, Total 7.1 g/dL (6.0-8.3)
[2022-07-01] MEDS: Furosemide 40 MG/4 ML VIAL SLOW IVP SCH ×2 (05:45→17:04)
[2022-07-01] MEDS ORDERED: Acetaminophen 325 MG TAB ONE (05:48)
[2022-07-01] MEDS: Acetaminophen 325 MG TAB PO PRN ×2 (05:52→20:49)
[2022-07-01] MEDS ORDERED: Carvedilol 12.5 MG TAB ONE (07:51)
[2022-07-01] MEDS ORDERED: Potassium Chloride 20 MEQ TAB ONE (07:52)
[2022-07-01] MEDS: Carvedilol 12.5 MG TAB PO SCH ×2 (07:57→17:05)
[2022-07-01] MEDS ORDERED: Potassium Chloride 20 MEQ TAB PO SCH (08:00)
[2022-07-01] MEDS ORDERED: Ondansetron PF 4 MG/2 ML Vial ONE (08:39)
[2022-07-01 08:40] LABS: Magnesium 1.5 mg/dL (1.6-2.6)
[2022-07-01] MEDS ORDERED: Magnesium 2 GM/50 ML(in water) 2 GM in Premix Bag 1 BAG IVPB SCH (09:00)
[2022-07-01] MEDS ORDERED: Magnesium 2 GM/50 ML BAG (IN WATER) ONE (09:20)
[2022-07-01] MEDS: Aspirin Chewable 81 MG TAB PO SCH (09:35)
[2022-07-01] MEDS: FLUoxetine HCl 10 MG CAP PO SCH (09:37)
[2022-07-01] MEDS: Valsartan 80 MG TAB PO SCH ×2 (09:37→20:48)
[2022-07-01 15:22] LABS: Anion Gap 13 mmol/L (10-20); BUN (Urea Nitrogen) 14 mg/dL (9.8-20.1); Calc. Creatinine Clearance 0 mL/min (70-130); Carbon Dioxide 32 mmol/L (22-29); Chloride 103 mmol/L (98-107); Estimated GFR 75; Glucose 133 mg/dL (70-105); Magnesium 2.3 mg/dL (1.6-2.6); Sodium 145 mmol/L (136-145)
[2022-07-01 15:33] VITALS: BMI 38.6
[2022-07-01] MEDS: Potassium Chloride 20 MEQ TAB PO SCH ×2 (15:53→20:48)
[2022-07-02] MEDS: Furosemide 40 MG/4 ML VIAL SLOW IVP SCH ×2 (05:23→13:29)
[2022-07-02 05:55] LABS: Hemoglobin 12.2 g/dL (12.0-15.5); Mean Corpuscular HGB CONC 31.3 g/dL (32.0-36.0); Mean Corpuscular Hemoglobin 24.4 pg (27.0-33.0); Mean Platelet Volume 10.4 fl (7.4-10.4); Platelet Count 185 10x3/uL (150-450); RBC Distribution Width 17.6 % (11.5-14.5); White Blood Cell (WBC) Count 3.7 10x3/uL (3.5-10.5)
[2022-07-02 06:16] LABS: Anion Gap 12 mmol/L (10-20); BUN (Urea Nitrogen) 13 mg/dL (9.8-20.1); Calc. Creatinine Clearance 154 mL/min (70-130); Carbon Dioxide 29 mmol/L (22-29); Chloride 105 mmol/L (98-107); Estimated GFR 81; Magnesium 1.9 mg/dL (1.6-2.6); Potassium 3.5 mmol/L (3.5-5.1); Sodium 142 mmol/L (136-145)
[2022-07-02 06:21] LABS: Glucose 91 mg/dL (70-105)
[2022-07-02 06:30] LABS: MDiff Complete? YES
[2022-07-02 06:34] LABS: Eosinophils 5 % (0-10); Lymphocytes 37 % (21-51); Monocytes 19 % (0-10); Neutrophil 39 % (42-75)
[2022-07-02 06:36] LABS: Platelet Morphology Comment Appears Adequate
[2022-07-02 06:37] LABS: Hypochromia SLIGHT = 6-15 cells (100X) (0-5/hpf)
[2022-07-02] MEDS: Valsartan 80 MG TAB PO SCH ×2 (08:56→21:16)
[2022-07-02] MEDS: Aspirin Chewable 81 MG TAB PO SCH (08:56)
[2022-07-02] MEDS: Carvedilol 12.5 MG TAB PO SCH (08:56)
[2022-07-02] MEDS: Potassium Chloride 20 MEQ TAB PO SCH (08:56)
[2022-07-02] MEDS: FLUoxetine HCl 10 MG CAP PO SCH (08:56)
[2022-07-02] MEDS ORDERED: Electrolyte Replacement Protocol 1 EACH FS SCH (09:15)
[2022-07-02] MEDS ORDERED: Magnesium 2 GM/50 ML(in water) 2 GM in Premix Bag 1 BAG IVPB SCH (12:00)
[2022-07-02] MEDS ORDERED: Potassium Chloride 20 MEQ TAB PO SCH ×2 (12:00)
[2022-07-02] MEDS ORDERED: Ipratropium Bromide 2.5 ml Neb NEB PRN (16:21)
[2022-07-02] MEDS: Carvedilol 25 MG TAB PO SCH (17:05)
[2022-07-02 17:41] LABS: Potassium 3.6 mmol/L (3.5-5.1)
[2022-07-02] MEDS: Acetaminophen 325 MG TAB PO PRN (21:17)
[2022-07-03] MEDS: Furosemide 40 MG/4 ML VIAL SLOW IVP SCH (06:23)
[2022-07-03 06:28] LABS: Anion Gap 13 mmol/L (10-20); BUN (Urea Nitrogen) 19 mg/dL (9.8-20.1); Calc. Creatinine Clearance 143 mL/min (70-130); Calcium 9.3 mg/dL (7.8-10.44); Carbon Dioxide 31 mmol/L (22-29); Chloride 102 mmol/L (98-107); Estimated GFR 73; Glucose 91 mg/dL (70-105); Magnesium 1.9 mg/dL (1.6-2.6); Potassium 3.9 mmol/L (3.5-5.1); Sodium 142 mmol/L (136-145)
[2022-07-03 07:04] LABS: Mean Corpuscular HGB CONC 31.9 g/dL (32.0-36.0); Mean Corpuscular Hemoglobin 24.8 pg (27.0-33.0); Mean Corpuscular Volume 77.7 fl (81.6-98.3); Mean Platelet Volume 10.2 fl (7.4-10.4); Platelet Count 194 10x3/uL (150-450); RBC Distribution Width 17.2 % (11.5-14.5); Red Blood Cell (RBC) Count 5.25 10x6/uL (3.90-5.03); White Blood Cell (WBC) Count 3.8 10x3/uL (3.5-10.5)
[2022-07-03 07:20] LABS: MDiff Complete? YES
[2022-07-03 07:26] LABS: Eosinophils 3 % (0-10); Lymphocytes 45 % (21-51); Monocytes 22 % (0-10); Neutrophil 30 % (42-75)
[2022-07-03 07:28] LABS: Hypochromia SLIGHT = 6-15 cells (100X) (0-5/hpf); Microcytosis SLIGHT = 6-15 cells (100X) (0-5/hpf); Platelet Morphology Comment Appears Adequate
[2022-07-03] MEDS ORDERED: Magnesium 2 GM/50 ML(in water) 2 GM in Premix Bag 1 BAG IVPB SCH (08:00)
[2022-07-03] MEDS: Aspirin Chewable 81 MG TAB PO SCH (09:37)
[2022-07-03] MEDS: Carvedilol 25 MG TAB PO SCH (09:37)
[2022-07-03] MEDS: Potassium Chloride 20 MEQ TAB PO SCH (09:37)
[2022-07-03] MEDS: FLUoxetine HCl 10 MG CAP PO SCH (09:37)
[2022-07-03] MEDS: Valsartan 80 MG TAB PO SCH (09:39)
[2022-07-03] MEDS ORDERED: Furosemide 20 MG TAB PO SCH (14:00)
[2022-07-03 19:51] VITALS: BP 140/86; TEMP 98.1
[2022-07-04] MEDS ORDERED: Spironolactone 25 MG TAB PO SCH (08:00)
== END 2022-07-03 17:00 | disposition home or self-care (01) | DRG 291 ==
LOC: CSHERS 00:03 → CSHERHOLD 02:36 → CSHTELE 14:39
PROVIDERS: ADMIT Internal Medicine; ATTEND Internal Medicine
DX: I13.0 Hypertensive heart and chronic kidney disease with heart failure and stage 1 through stage 4 chronic kidney disease, or unspecified chronic kidney disease (principal); I50.43 Acute on chronic combined systolic (congestive) and diastolic (congestive) heart failure; I24.8 Other forms of acute ischemic heart disease; N17.9 Acute kidney failure, unspecified; I47.1 Supraventricular tachycardia; I47.20 Ventricular tachycardia, unspecified; J45.20 Mild intermittent asthma, uncomplicated; E66.01 Morbid (severe) obesity due to excess calories; F41.9 Anxiety disorder, unspecified; F32.A Depression, unspecified; E87.6 Hypokalemia; E83.42 Hypomagnesemia; N18.2 Chronic kidney disease, stage 2 (mild); Z88.5 Allergy status to narcotic agent; Z79.82 Long term (current) use of aspirin; Z79.899 Other long term (current) drug therapy; Z98.51 Tubal ligation status; Z88.8 Allergy status to other drugs, medicaments and biological substances; Z68.39 Body mass index [BMI] 39.0-39.9, adult
CPT/HCPCS: 36415; 71045; 80048; 80053; 82553; 83690; 83735; 83880; 84484; 85025; 93005; 93306; 94760; 94762; 96374; 96375; J0360; J1650; J1940; J2405; J3475

== ENCOUNTER 2022-12-22 09:09 | Emergency (ER) | payer OTHER ==
[2022-12-22 10:30] LABS: #Eosinphils 0.1 10x3/uL (0.0-0.5); #Monocytes 0.8 10x3/uL (0.0-1.1); %Basophils 0.4 % (0.0-2.0); %Eosinophils 1.5 % (0.0-6.0); %Lymphocytes 18.5 % (18.0-47.0); %Monocytes 16.1 % (0.0-10.0); %Neutrophils 63.1 % (40.0-75.0); Hematocrit 38.4 % (34.9-44.5); Hemoglobin 12.6 g/dL (12.0-15.5); Mean Corpuscular HGB CONC 32.8 g/dL (32.0-36.0); Mean Corpuscular Hemoglobin 25.6 pg (27.0-33.0); Mean Platelet Volume 11.5 fl (7.4-10.4); Platelet Count 128 10x3/uL (150-450); RBC Distribution Width 15.8 % (11.5-14.5); Red Blood Cell (RBC) Count 4.92 10x6/uL (3.90-5.03); White Blood Cell (WBC) Count 4.7 10x3/uL (3.5-10.5)
[2022-12-22 10:33] LABS: BHCG - Serum Negative (NEGATIVE); Pregs Control Background? CLEAR/WHITE (CLR/WHITE); Pregs Control Bar Appear? YES (CONTROL BAR)
[2022-12-22 10:40] LABS: ALT (SGPT) 21 U/L (8-55); AST (SGOT) 22 U/L (5-34); Albumin 3.8 g/dL (3.5-5.0); Alkaline Phosphatase 78 U/L (40-110); Anion Gap 15 mmol/L (10-20); BUN (Urea Nitrogen) 13 mg/dL (9.8-20.1); Bilirubin, Total 1.3 mg/dL (0.2-1.2); Calc. Creatinine Clearance 0 mL/min (70-130); Calcium 8.7 mg/dL (7.8-10.44); Carbon Dioxide 22 mmol/L (22-29); Chloride 104 mmol/L (98-107); Estimated GFR 79; Glucose 106 mg/dL (70-105); Magnesium 1.6 mg/dL (1.6-2.6); Potassium 3.9 mmol/L (3.5-5.1); Protein, Total 6.8 g/dL (6.0-8.3); Sodium 137 mmol/L (136-145)
[2022-12-22 10:42] LABS: Troponin I 0.023 ng/mL (< 0.028)
[2022-12-22] MEDS ORDERED: Furosemide 40 MG/4 ML VIAL ONE (10:56)
[2022-12-22 11:15] LABS: SARS-CoV-2 NAA Rapid Test Not Detected (NotDetected)
== END 2022-12-22 13:09 | disposition home or self-care (01) ==
LOC: CSHERS 09:09
DX: I11.0 Hypertensive heart disease with heart failure (principal); I50.9 Heart failure, unspecified; Z20.822 Contact with and (suspected) exposure to COVID-19
CPT/HCPCS: 71045; 80053; 83735; 83880; 84484; 84703; 85025; 93005; 94644; 96374; J1940; J7611